=== PATIENT | male | born 1955 | race Caucasian/White ===

== ENCOUNTER 2024-08-04 08:02 | Day surgery (SDC) | payer OTHER, SELFPAY ==
--- NOTE | 2024-08-04 07:33 | PM.PREOP ---
Pre-operative Note Interval Note History & Physical reviewed/Exam performed by Physician: Yes Changes to H&P: No
--- NOTE | 2024-08-04 07:33 | PM.HP.1 ---
History of Present Illness History of Present Illness Chief complaint: Right foot Narrative: 69 year old male here for hammertoes. Patient is interested in pursuing surgical intervention due to recurrent wounds to the tip of both second toes. Patient would like his calluses checked and trimmed today as well. Patient denies n/v/f/c/sob/cp. [facility] Medical History (Updated 07/30/24 @ 14:48 by Dana Velasquez RN) Anxiety and depression Amputated toe of right foot History of colon polyps Left abducens nerve palsy Malignant melanoma of skin Idiopathic peripheral neuropathy GERD (gastroesophageal reflux disease) Erectile dysfunction RORO (obstructive sleep apnea) Anxiety Hypothyroid HTN (hypertension) Social History Smoking Status: Former smoker alcohol intake: current Meds Home Medications and Allergies Home Medications Medication Instructions Recorded Confirmed Type buspirone 5 mg tablet 10 mg PO TID anxiety 07/30/24 07/30/24 History duloxetine 20 mg capsule,delayed 20 mg PO DAILY depression 07/30/24 07/30/24 History release duloxetine 60 mg capsule,delayed 60 mg PO DAILY depression 07/30/24 07/30/24 History release esomeprazole magnesium mg PO GERD 07/30/24 History ibuprofen 800 mg tablet 800 mg PO Q8H PRN Pain (Scale 07/30/24 07/30/24 History Score 4-6) levothyroxine 50 mcg tablet 50 mcg PO DAILY hypothyroid 07/30/24 07/30/24 History lisinopril 10 2 tab PO DAILY HTN 07/30/24 07/30/24 History mg-hydrochlorothiazide 12.5 mg tablet multivitamin 1 tab PO DAILY 07/30/24 07/30/24 History omeprazole 20 mg capsule,delayed 20 mg PO BID GERD 07/30/24 07/30/24 History release papaverine 30 mg/mL injection PRN Sexual Activity 07/30/24 History solution Allergies Allergy/AdvReac Type Severity Reaction Status Date / Time No Known Drug Allergies Allergy Verified 07/30/24 14:51 Exam Neuro Other: Absent protective sensations to forefoot b/l. Extrem Other: Right second toe subluxed at PIPJ. Assessment & Plan Assessment & Plan narrative: 1. Right second digit hammertoe Patient seen and evaluated. Surgical plan: right second hammertoe correction. Risks and benefits of the procedure discussed with all questions answered to patient's satisfaction. Reviewed potential complications that may include but not limited to the following: DVT, failure to resolve all symptoms, infection, nerve injury, bleeding, recurrence, or wound. Reviewed surgical technique and general aftercare protocols. All questions answered to patient's satisfaction with no guarantees made. Patient verbalized understanding and agreed with surgical plan. RTC for post-op. Time-Based Coding :: [TOTAL MINUTES] spent with patient and on the chart (including review of chart, obtaining history, exam, reviewing outside data, placing orders, documenting exam and treatment plan, and counseling patient) on [DATE].
[2024-08-04 08:32] VITALS: BMI 34.2
[2024-08-04 08:37] VITALS: BP 135/88; PULSE 60; RESP 18; TEMP 36.2; O2SAT 98
[2024-08-04] MEDS: CEFAZOLIN 2 GM/100 ML PREMIX 100 ML IV (10:40)
[2024-08-04] MEDS: LIDOCAINE 1% 20 ML INJ (10:41)
--- NOTE | 2024-08-04 11:09 | SUR.OPER ---
Supine on padded OR bed, head on pillow, arms secured on padded arm boards at <90 degrees abduction, legs uncrossed, safety belt at thigh, tape over blanket over right leg, tape over scd over left leg. Upper body juan alberto hugger in place.
[2024-08-04] MEDS: BUPIVACAINE 0.5% (PF) 10 ML VIAL INJ (12:00)
[2024-08-04 13:18] VITALS: BP 115/53; PULSE 74; RESP 16; TEMP 36.2; O2SAT 98
[2024-08-04 13:23] VITALS: BP 129/54; PULSE 74; RESP 15; O2SAT 98
[2024-08-04 13:28] VITALS: BP 102/77; PULSE 68; RESP 16; O2SAT 98
[2024-08-04 13:38] VITALS: BP 112/71; PULSE 68; RESP 16; O2SAT 94
[2024-08-04] MEDS: ACETAMINOPHEN IV 1,000 MG/100 ML VIAL 400 MG IV (13:39)
[2024-08-04 13:46] VITALS: BP 102/41; PULSE 72; RESP 16; O2SAT 98
--- NOTE | 2024-08-12 20:17 | P.OP_ITS ---
Operative Date/Time/Diagnoses Date of procedure: 08/04/24 Pre-op diagnosis: 1. Right second digit hammertoe Post-op diagnosis: same Procedure & Clinicians Procedure: 1. Right second digit hammertoe correction Same procedure as scheduled: Yes Indications: Recurrent ulcer secondary to deformity and neuropathy. Surgeon: Valente Bird Click Yes if Unassisted: Yes Anesthesia Type: Sedation Operative Notes Findings: Consistent with diagnosis. Closure Type: primary Specimen(s): none sent Estimated Blood Loss (mL): 20 Tourniquet time (min): 76 Procedure in detail: Patient was identified and transferred onto operating table from [facility] in supine position. Deep sedation was administered, followed by local injection with 1% lidocaine plain. A tourniquet was applied to right ankle over well- padded surface. Right foot was then prepped and draped in the usual sterile fashion, followed by official timeout with surgical team all in agreement. The right foot was then exsanguinated, and the tourinuqet was inflated to 225 mmHg. Attention was directed to right second toe. A linear was made over each interphalangeal joint using # 15 scalpel, and dissection was carried out in layers from skin down to the joint. Care was taken to protect the extensor tendon and neurovasular structures. A sagittal saw was used to resect cartilage down to subchondral bone on all respective surfaces. Following manufacture instructions for the implant as well as using K-wire and fluoroscopy, the right second toe was held in rectus position. Decision was made to leave the K-wire for enhanced stability, and a cap was placed over the cut wire at the tip of the toe. Procedure sites were irrigated with copious saline, then they were closed from deep to superficial using 3-0 vicryl and 4-0 nylon. Tourniquet was released, and adequate capillary fill time was noted to all toes. Right foot was then cleaned and dried. Iodine soaked Adaptic was applied to incision lines, and they were covered with bulky sterile dressings. Patient tolerated procedure without complication and was transferred to post- anesthesia care unit with all vital signs stable. Post-operative Condition: stable Disposition: same day surgery Plan for aftercare: NWB to surgical limb. Elevate above heart on two or more pillows. Ice behind knee. Take medications as directed. RTC as scheduled.
== END 2024-08-04 14:20 | disposition home or self-care (01) ==
PROVIDERS: PCP Internal Medicine; Referring Provider Podiatrist Foot & Ankle Surgery; Visit Provider Podiatrist Foot & Ankle Surgery
PROC: (CPT 28285; principal; 2024-08-04 09:15)
DX: M20.41 Other hammer toe(s) (acquired), right foot (principal)
CPT/HCPCS: 28285; J0134; J0690; J1100; J2250; J2405; J2704; J3010